=== PATIENT | male | born 1975 | race African-American/Black ===

== ENCOUNTER 2017-05-31 03:14 | Emergency (ER) | payer OTHER ==
[~2017-05-31] VITALS: Ht 170.2 cm; Wt 83.3 kg
[~2017-05-31 03:14] MED LIST: ENDOCET 5-3251 EACH PO; FLEXERIL10 MG PO; LEVAQUIN500 MG PO; MOTRIN800 MG PO; TRAMADOL HCL E100 M1 PO
[2017-05-31 04:12] VITALS: BP 148/98
== END 2017-05-31 04:13 | disposition home or self-care (01) ==
LOC: EXP 03:14 → EME 03:14 → EXP 04:13
DX: H10.9 Unspecified conjunctivitis (principal); F17.200 Nicotine dependence, unspecified, uncomplicated